=== PATIENT | male | born 2000 | race Caucasian/White ===

== ENCOUNTER 2021-01-05 21:46 | Emergency (ER) | payer OTHER ==
[~2021-01-05] VITALS: Ht 182.9 cm; Wt 77.3 kg
[2021-01-05 22:48] VITALS: BP 130/80; PULSE 76; TEMP 98.1
== END 2021-01-05 22:50 | disposition home or self-care (01) ==
LOC: COL.ER 21:46
DX: S61.216A Laceration without foreign body of right little finger without damage to nail, initial encounter (principal); W26.9XXA Contact with unspecified sharp object(s), initial encounter